=== PATIENT | male | born 1980 | race Caucasian/White ===

== ENCOUNTER → 2019-12-24 | Outpatient (CLI) | payer OTHER | LOC: LAB 17:38 | DX: Z02.83 Encounter for blood-alcohol and blood-drug test (principal) | CPT/HCPCS: 36415 ==

== ENCOUNTER 2020-07-08 16:15 | Emergency (ER) | payer BC, OTHER ==
[~2020-07-08] VITALS: Ht 170.2 cm; Wt 62.0 kg
[2020-07-08 16:34] VITALS: BP 137/89
--- NOTE | 2020-07-08 16:46 | PHYS DOC ---
Adult General Chief Complaint Chief Complaint: MECHANICAL FALL HPI HPI Patient is a 40-year-old male presents emergency department with complaints that he was told he fell out of a truck 2 days ago. Patient states he has been laying around at home and noticed his head and neck and arm started hurting re ally bad so he decided to come into the emergency room today for evaluation. Patient states his last tetanus immunization was less than 5 years ago. Patient complains of face pain, head pain, neck pain, bilateral shoulder pain, bilateral upper extremity pain, bilateral hand pains. Patient denies chest pain, shortness of breath, nausea, vomiting, diarrhea, constipation. Patient denies visual changes, denies dizziness. Patient denies numbness or tingling to his extremities. Patient reports a 10/10 pain on 1-10 pain scale. Patient denies any other physical complaints or physical concerns. (EDUARDO QUINN APRN) Review of Systems Review of Systems 14 body systems of review of systems have been reviewed. See HPI for pertinent positives and negative responses, otherwise all other systems are negative, nonpertinent or noncontributory. (EDUARDO QUINN APRN) Physical Exam Physical Exam Constitutional: Well developed, well nourished, no acute distress, non-toxic appearance. 40-year-old male in no apparent distress, patient's physical appearance and examination not consistent with chief complaint. HENT: Normocephalic, atraumatic, bilateral external ears normal, oropharynx moist, no oral exudates, nose normal. No areas of ecchymosis, skull depressions, hematomas of the skull or face appreciated. Patient has abrasions to forehead, right zygoma and right side of nose. No crepitus or swelling of the face or nose. Bilateral nasal turbinates nonerythematous, no drainage, bila teral TMs within normal limits, intact, bilateral external auditory canals within normal limits, no drainage appreciated. No russo sign, no raccoon eyes. No lymphadenopathy of the head or neck appreciated. Eyes: PERRLA, EOMI, conjunctiva normal, no discharge. Pupils 4 mm. Neck: Normal range of motion, no tenderness, supple, no stridor. No meningismus signs, no nuchal rigidity, pain to palpation along midline C-spine and left and right side of neck to palpation. No step-offs, no crepitus appreciated. No bruising or areas of ecchymosis of the neck appreciated. Cardiovascular:Heart rate regular rhythm, no murmur, heart sounds S1-S2 consultation. Lungs & Thorax: Bilateral breath sounds clear to auscultation no adventitious lung sounds appreciated. Abdomen: Bowel sounds normal, soft, no tenderness, no masses, no pulsatile masses. Skin: Warm, dry, no erythema, no rash. See HEENT note for skin assessment of face and forehead. Back: No tenderness, no CVA tenderness. Extremities: No tenderness, no cyanosis, no clubbing, ROM intact, no edema. Patient complains of pain to palpation of bilateral upper extremities, no abrasions, no bruising, no deformities, no swelling, no crepitus appreciated, distal cap refill less than 2 seconds, +2 bilateral radial pulses. Full passive range of motion. Neurologic: Alert and oriented X 3, normal motor function, normal sensory function, no focal deficits noted. Psychologic: Affect normal, judgement normal, mood normal. (EDUARDO QUINN APRN) EKG EKG [] (EDUARDO QUINN APRN) Radiology/Procedures Radiology/Procedures PATIENT: GEOFFREY LAW ACCOUNT: [id number] : 1980 LOCATION: ER AGE: 40 SEX: M EXAM STATUS: REG ER ORD. PHYSICIAN: EDUARDO QUINN APRN REASON: BLUNT HEAD INJURY WITH LOC PROCEDURE: CT HEAD AND CERVICAL SPINE WO Exam: CT head and cervical spine without contrast INDICATION: Blunt head injury with loss of consciousness TECHNIQUE: Sequential axial images through the head and cervical spine were obtained without the administration of IV contrast. Exposure: One or more of the following in the visualized dose reduction techniques were utilized for this examination: 1. Automated exposure control 2. Adjustment of the MA and/or KV according to patient size 3. Use of iterative of reconstructive technique Comparisons: None FINDINGS: Head: No focal parenchymal lesion or hemorrhage is identified. There is no midline shift or sulcal effacement. No acute vascular territory infarction is identified. Mora-white distinction is preserved. The ventricular system is within normal limits without compression hydrocephalus. The basal cisterns are well maintained. The visualized portions of the paranasal sinuses and mastoid air cells are well- pneumatized. No acute fractures. Cervical spine: Vertebral body heights and alignment are well-maintained. Fracture to the cervical spine is is not identified. Spondylotic change in cervical spine with degenerative disc disease greatest at C6-C7. Visualized paraspinal soft tissues are unremarkable. IMPRESSION: 1. No acute intracranial abnormality. 2. Negative CT C-spine for acute traumatic injury. Electronically signed by: Papo Escalera MD (07/08/2020 5:22 PM) [facility] DICTATED AND SIGNED BY: PAPO ESCALERA MD DATE: 07/08/201717 (EDUARDO QUINN APRN) Heart Score C/O Chest Pain: No Risk Factors: Risk Factors: DM, Current or recent (<one month) smoker, HTN, HLP, family history of CAD, obesity. Risk Scores: Risk Factors: DM, Current or recent (<one month) smoker, HTN, HLP, family history of CAD, obesity. (EDUARDO QUINN APRN) Course & Med Decision Making Course & Med Decision Making Pertinent Labs and Imaging studies reviewed. (See chart for details) 40-year-old male, vital signs reviewed, presents emergency department complaining of falling out of a truck 2 days ago. Patient's physical exam inconsistent with patient's chief complaint. When patient was question of events, patient stated he now no longer remembers what happened and is not sure. Patient has abrasions to face, no other obvious injuries appreciated. Related to patient's complaint of pain, a CT head and C-spine was ordered. Patient reported lying in bed for the past 2 days without moving, will order CBC, CMP, CK to rule out rhabdo. Urinalysis assay with urine drug screen related to patient acute forgetfulness during examination. 1 L intravenous normal saline ordered. Patient complains of 10/10 pain on a 1-10 pain scale. 30 mg IV [address] ordered. CT head and C-spine negative for acute fracture or acute process. Patient asking for stronger pain medications, discussed with patient he was recently given 30 mg Toradol. Patient became upset and is wanting to leave. Discussed with patient need to follow-up with primary care and neurology specialist for ongoing evaluation of pain and pain management. Patient states "I do not need any of this crap, I will just leave and go get drunk" patient left emergency department without receiving written discharge instructions. (EDUARDO QUINN APRN) Course & Med Decision Making I was attending physician and oversaw care of patient while in ER. I was available for questioning and reviewed case with POSITION CLASSIFICATION MANAGER prior to patient departure. I agree to note, plan of care and dispo as stated Electronically signed, Whit Elliott DO (WHIT ELLIOTT DO) Marco Disclaimer Dragon Disclaimer This electronic medical record was generated, in whole or in part, using a voice recognition dictation system. (EDUARDO QUINN APRN) Departure Departure: Impression: Primary Impression: Scalp abrasion Additional Impression: Facial abrasion Disposition: LEFT AWOL/ELOPED Condition: GOOD Referrals: PCP,NO (PCP) WILFRID DE LA PAZ Patient Instructions: Abrasions Additional Instructions: You were seen in emergency department for an unknown injury you suffered [address] of your head and your cervical spine did not show any fractures or other abnormalities that require emergent intervention or admission to the hospital, I have given you a primary care physician to follow-up with in the ev ent you are unable to secure your own primary care physician appointment soon. I encourage you to see a primary care physician soon for consideration of ongoing pain management. Please return to the emergency department for worsening symptoms or other concerns. Problem Qualifiers Primary Impression: Scalp abrasion Encounter type: initial encounter Qualified Codes: S00.01XA - Abrasion of scalp, initial encounter Additional Impression: Facial abrasion Encounter type: initial encounter Qualified Codes: S00.81XA - Abrasion of other part of head, initial encounter EDUARDO QUINN APRN Jul 08, 2020 16:46 WHIT ELLIOTT DO July 12, 2020 15:21
[2020-07-08] MEDS ORDERED: IV NORMAL SALINE 1,000ML 1,000 ML IV ONE (17:00)
--- NOTE | 2020-07-08 17:24 | RAD ---
Exam: CT head and cervical spine without contrast INDICATION: Blunt head injury with loss of consciousness TECHNIQUE: Sequential axial images through the head and cervical spine were obtained without the admi nistration of IV contrast. Exposure: One or more of the following in the visualized dose reduction techniques were utilized for this examination: 1. Automated exposure control 2. Adjustment of the MA and/or KV according to patient size 3. Use of iterative of reconstructive technique Comparisons: None FINDINGS: Head: No focal parenchymal lesion or hemorrhage is identified. There is no midline shift or sulcal effaceme nt. No acute vascular territory infarction is identified. Mora-white distinction is preserved. The ventricular system is within normal limits without compression hydrocephalus. The basal cisterns are well maintained. The visualized portions of the paranasal sinuses and mastoid air cells are well-pneumatized. No acute fractures. Cervical spine: Vertebral body heights and alignment are well-maintained. Fracture to the cervical spine is is not identified. Spondylotic change in cervical spine with degenerative disc disease greatest at C6-C7. Visualized paraspinal soft tissues are unremarkable. IMPRESSION: 1. No acute intracranial abnormality. 2. Negative CT C-spine for acute traumatic injury. Electronically signed by: Papo Cotton MD (07/08/2020 5:22 PM) [facility]
[2020-07-08 17:29] LABS: BASO # 0.2 x10^3/uL (0.0-0.2); BASO % 3 % (0-3); EOS # 0.1 x10^3/uL (0.0-0.7); EOS % 1 % (0-3); HEMATOCRIT 45.3 % (39.0-53.0); HEMOGLOBIN 15.5 g/dL (13.0-17.5); LYMPH # 2.9 x10^3/uL (1.0-4.8); LYMPH % 35 % (24-48); MEAN CORPUSCULAR HEMOGLOBIN 32 pg (25-35); MEAN CORPUSCULAR HGB CONC 34 g/dL (31-37); MEAN CORPUSCULAR VOLUME 94 fL (79-100); MONO # 0.5 x10^3/uL (0.0-1.1); MONO % 6 % (0-9); NEUT # 4.7 x10^3uL (1.8-7.7); NEUT % 56 % (31-73); PLATELET COUNT 338 x10^3/uL (140-400); RED CELL DISTRIBUTION WIDTH 13.9 % (11.5-14.5); WHITE BLOOD COUNT 8.4 x10^3/uL (4.0-11.0)
[2020-07-08 17:41] LABS: CALCIUM 8.2 mg/dL (8.5-10.1); CREATININE 0.8 mg/dL (0.7-1.3); GFR 107.6
[2020-07-08 18:06] LABS: ALBUMIN 3.5 g/dL (3.4-5.0); ALBUMIN/GLOBULIN RATIO 1.1 (1.0-1.7); TOTAL BILIRUBIN 0.1 mg/dL (0.2-1.0); TOTAL PROTEIN 6.7 g/dL (6.4-8.2)
[2020-07-08 19:00] LABS: BILIRUBIN,URINE NEG (NEG); CLARITY,URINE CLEAR; COLOR,URINE YELLOW; GLUCOSE,URINE NEG (NEG); NITRITE,URINE NEG (NEG); UROBILINOGEN,URINE 0.2 mg/dL (0.2 mg/dL)
[2020-07-08] MEDS ORDERED: KETOROLAC 30 MG/ML VIAL. IVP ONE (19:00)
[2020-07-08 19:01] LABS: BACTERIA,URINE 0 /HPF (0-FEW); SQUAMOUS EPITHELIAL CELL,UR OCC /LPF; WBC,URINE RARE /HPF (0-4)
== END 2020-07-08 19:37 | disposition home or self-care (01) ==
LOC: ER 16:15
DX: S00.01XA Abrasion of scalp, initial encounter (principal); S00.81XA Abrasion of other part of head, initial encounter; M25.511 Pain in right shoulder; M25.512 Pain in left shoulder; V89.9XXA Person injured in unspecified vehicle accident, initial encounter; Y93.89 Activity, other specified; Y92.89 Other specified places as the place of occurrence of the external cause; Y99.8 Other external cause status
CPT/HCPCS: 36415; 70450; 72125; 80053; 81001; 82553; 85025; 96361; 96374; 99285; J1885; J7030